=== PATIENT | female | born 1950 | race Caucasian/White ===

== ENCOUNTER 2023-07-21 06:50 | Day surgery (SDC) | payer MEDICARE ==
[2023-07-12 14:30] VITALS: BP 106/63
[~2023-07-21] VITALS: Ht 152.4 cm; Wt 53.2 kg
--- NOTE | ~2023-07-21 | OR ---
[facility] [address] [place], [place] [address] Draft DATE OF OPERATION: 07/21/2023 SURGEON: Natalya Jain MD PREOPERATIVE DIAGNOSIS: Postmenopausal bleeding. POSTOPERATIVE DIAGNOSIS: Postmenopausal bleeding, small polyp. ANESTHESIA: MAC. ESTIMATED BLOOD LOSS: Minimal. DRAINS: None. INDICATIONS AND FINDINGS: The patient is a 72-year-old female who has recently had some abnormal bleeding. She also has a history of prolapse. At the time of surgery, she has almost complete uterovaginal prolapse. The cavity itself sounded to 7 cm. The cavity was pretty much atrophic other than a small wispy polyp. PROCEDURE IN DETAIL: The patient was prepped and draped in the dorsal lithotomy position. A weighted speculum was placed and the anterior lip of the cervix was visualized and grasped with single-tooth tenaculum. The cavity sounded to 7 cm. The endocervical canal was then dilated to a #8 dilator. The MyoSure device was then introduced and the cavity evaluated. The MyoSure Lite was then introduced and the polyps removed. Following this, the MyoSure Lite was removed and sharp curettage was done with a small curette with a small amount of tissue found. The procedure was then complete. The tenaculum was removed and there was no evidence of any ongoing bleeding from the tenaculum site. She was taken to recovery room in good condition. All sponge and needle counts were correct. PATIENT NAME: CHRISTOPHE HERMAN OPERATIVE REPORT DATE OF : 46 REPORT #: [id number] PHYSICIAN: NATALYA JAIN MD PCP: JENA SIMMONS REPORT IS CONFIDENTIAL AND NOT TO BE RELEASED WITHOUT AUTHORIZATION [facility] [address] [place] [id number] Draft MD RAMIRO Wright/LATRICE /[id number] Copies: ~ PATIENT NAME: CHRISTOPHE HERMAN OPERATIVE REPORT DATE OF : 46 REPORT #: [id number] PHYSICIAN: NATALYA JAIN MD PCP: JENA SIMMONS REPORT IS CONFIDENTIAL AND NOT TO BE RELEASED WITHOUT AUTHORIZATION
[~2023-07-21 06:50] MED LIST: B COMPLEX WITH1 EAC1 PO; CARBIDOPA-LEVO1 EA10 PO; CELEXA20 MG PO; CLONAZEPAM1 MG PO; MELATONIN10 M2 PO; MOVE FREE ULTR1 EAC2; PRAMIPEXOLE0.125 MG PO; SEROQUEL50 MG PO
--- NOTE | 2023-07-21 07:27 | NUR ---
DS ROUNDS. PT GONE FOR PROCEDURE. PROVIDED PRAYER.
[2023-07-21 07:36] VITALS: BP 132/60
[2023-07-21 12:26] VITALS: BP 118/53
--- NOTE | 2023-07-21 12:30 | NUR ---
07/21/23 1230 Carmen Negron 1050 PT ARRIVED IN PACU SLEEPY. 1110 DR AT BEDSIDE. CONTINUES TO SLEEP. REU. 1120 PT AWAKE AND TALKING TO STAFF. 1125 SITTING UP IN BED SIPPING ON WATER. 1130 GETTING DRESSED WITH STAND BY ASSIST. NO C/O'S. 1141 LEFT VIA W/C TO WAITING ROOM. DC INSTRUCTIONS GIVEN TO PT/SPOUSE. ALL QUESTIONS ANSWERED. SPOUSE WANTING TO TAKE TO CAFETERIA. OFFERED TO HAVE LUNCH BROUGHT UP TO ROOM 12 TO EAT. 1145 IN ROOM 12 SITTING IN W/C WAITING FOR TURKEY LUNCH. CALL LIGHT IN PLACE. SPOUSE IN ROOM.
--- NOTE | 2023-07-26 06:23 | PATH ---
[facility] [address] [place], [place] [address] Signed SPECIMEN(S): A ENDOMETRIAL CURETTINGS SPECIMEN SOURCE: A. ENDOMETRIAL CURETTINGS CLINICAL HISTORY: Postmenopausal bleeding FINAL PATHOLOGIC DIAGNOSIS: Endometrial curettings: - Polypoid fragments of endometrial and lower uterine segment type mucosa with atrophic features, negative for hyperplasia or atypia. - Benign endo and ectocervical epithelium. JVR:von MICROSCOPIC EXAMINATION: Histologic sections of all submitted blocks are examined by light microscopy. These findings, together with the gross examination, support the pathologic diagnosis. GROSS DESCRIPTION: The specimen, labeled and designated "Omar, endometrial curettings," is received in formalin and consists of multiple fragments of red-brown to pink-coronado soft tissue (2.4 x 0.5 x 0.1 cm in aggregate). The specimen is submitted entirely in cassette (A1). VB (under the direct supervision of a pathologist) The Gross Description was prepared using a voice recognition system. The report was reviewed for accuracy; however, sound-alike word errors, addition and/or deletions may occur. If there is any question about this report, please contact Client Services. PERFORMING LABORATORY: Technical component was performed by [facility], [address] [place] [id number] (CLIA# [id number]). Professional interpretation was performed by [facility], [address] [place] [id number] (CLIA#: [id number]). Diagnostician: Joel Monae MD Pathologist Electronically Signed 07/23/2023 PATIENT NAME: CHRISTOPHE HERMAN PATHOLOGY DATE OF : 46 REPORT #: [id number] PHYSICIAN: ALEXANDER PATHOLOGY PCP: JENA SIMMONS REPORT IS CONFIDENTIAL AND NOT TO BE RELEASED WITHOUT AUTHORIZATION [address] [place] [address] Signed Copies: ~ PATIENT NAME: CHRISTOPHE HERMAN PATHOLOGY DATE OF : 46 REPORT #: [id number] PHYSICIAN: ALEXANDER PATHOLOGY PCP: JENA SIMMONS REPORT IS CONFIDENTIAL AND NOT TO BE RELEASED WITHOUT AUTHORIZATION
== END 2023-07-21 11:41 | disposition home or self-care (01) ==
LOC: OPS 06:50 → DS 06:50 → OPS 09:00
PROVIDERS: ATTEND Obstetrics & Gynecology
PROC: 0UDB8ZZ Extraction of Endometrium, Via Natural or Artificial Opening Endoscopic (ICD-10-PCS; principal; 2023-07-21 10:00)
DX: N84.0 Polyp of corpus uteri (principal); N95.0 Postmenopausal bleeding; M85.80 Other specified disorders of bone density and structure, unspecified site; G20.A1 Parkinson's disease without dyskinesia, without mention of fluctuations; Z79.899 Other long term (current) drug therapy
CPT/HCPCS: 00952; 88305; J2001; J2704; J7121

== ENCOUNTER 2023-08-10 09:34 | Inpatient (IN) | payer MEDICARE ==
[~2023-08-10] VITALS: Ht 152.4 cm; Wt 52.0 kg
--- NOTE | ~2023-08-10 | OR ---
[facility] [address] [place], [place] [address] Draft DATE OF OPERATION: 09/01/2023 SURGEON: Natalya Jain MD PHOTO PRINT SPECIALIST: Johnson. PREOPERATIVE DIAGNOSIS: Complete uterovaginal prolapse, stress incontinence. POSTOPERATIVE DIAGNOSIS: Complete uterovaginal prolapse, stress incontinence. PROCEDURES: Total vaginal hysterectomy, bilateral salpingectomy, sling procedure, colpocleisis, cystoscopy. ANESTHESIA: Spinal with general ET. ESTIMATED BLOOD LOSS: 200 mL. DRAINS: Soto catheter. PACKS: None. INDICATIONS AND FINDINGS: The patient is a 72-year-old female, who has been having worsening issues with uterovaginal prolapse. She has previously used a pessary and did not tolerate this well. Options were discussed and she wished to proceed with colpocleisis. At the time of surgery the uterus presented at the introitus. The uterus itself was small. The tubes and ovaries appeared normal. PROCEDURE IN DETAIL: The patient was prepped and draped in the dorsal lithotomy position. A weighted speculum was placed. The anterior lip of the cervix was visualized and grasped with single-tooth tenaculum. The cervix was injected with 10 mL of 1% lidocaine with PATIENT NAME: CHRISTOPHE HERMAN OPERATIVE REPORT DATE OF : 46 REPORT #: [id number] PHYSICIAN: NATALYA JAIN MD PCP: JENA SIMMONS REPORT IS CONFIDENTIAL AND NOT TO BE RELEASED WITHOUT AUTHORIZATION [facility] [address] [place], [place] [address] Draft 1:200,000 epinephrine. Posterior cul-de-sac was then entered sharply. The uterosacral ligaments were grasped bilaterally and divided with suture ligatures of 0 Vicryl. The vaginal mucosa was then circumscribed with a knife. The vaginal mucosa was from the overlying tissue with sharp dissection. The anterior cul-de-sac was thus entered. Following this, the remaining pedicle could be grasped with a single curved Z clamp on each side. This was done and divided. A free tie of 0 Vicryl followed by suture ligature of 0 Vicryl was placed on each side. The patient's right tube was grasped with [place] clamps and clamped across. This removed the great majority of the tube including the fimbriated end. It was excised. A free tie of 0 Vicryl was placed. The same procedure was carried out on the patient's left side. Following this, the vaginal cuff was examined. There was some bleeding from the posterior cuff and two [id number] sutures were placed bring the peritoneum down to the cuff using the 0 Vicryl. There was also a suture bringing the peritoneum to the cuff on the patient's right side. Following this, the cuff itself appeared to be hemostatic. The peritoneum was closed with a running suture of 3-0 Vicryl. The cuff itself was closed with a running locking stitch of 0 Vicryl. Attention was then directed anteriorly and Allis clamps were placed in the midline. A knife was used to incise the midline. This was done from the midurethral area down to the vaginal cuff. The vaginal mucosa was from the underlying tissue with a combination of blunt and sharp dissection. The most distal portion of this where the sling would be placed was carried out further laterally for placement of this. The vaginal mucosa was otherwise to the lateral aspects of the vagina. Following this, the obturator notch was identified. A knife was used to incise this. The trocars were placed for the sling procedure. These were placed at the lowest most medial portion of the obturator notch placed immediately behind the pubic rami and into the most upper lateral aspect of the vaginal incision. Care was taken to not buttonhole. This was done bilaterally. Following this, this Soto catheter was removed and cystoscopy was done. The 70-degree scope was placed and the bladder evaluated. There was no evidence of any injury. Fluorescein was needed as there was no obvious urine from the ureteral orifices, but was seen bilaterally eventually. Following this, the bladder was drained and the Soto catheter replaced. The portion of vaginal mucosa was over the sling was closed with a running suture of 2-0 Vicryl. The remaining vaginal mucosa was excised as far laterally as possible on each side. This area was packed after bleeding points were controlled. Attention was directed posteriorly. A triangle of tissue was removed from the perineal body. The vaginal mucosa was then undermined, incised in the midline sharply. This was carried to the apex of the vagina. The vaginal mucosa was then from the underlying tissue with a combination of blunt and sharp dissection and this was done as far laterally as possible. Following this, a small area of the vagina was left for the fourchette and slightly into the vagina. The remaining vaginal mucosa was then excised sharply as far laterally as possible and up to the vaginal cuff. There was a small amount of vaginal mucosa remaining of the vaginal cuff on each side. Following this, bleeding points were controlled with the cautery. There was some vascular bleeding at PATIENT NAME: CHRISTOPHE HERMAN OPERATIVE REPORT DATE OF : 46 REPORT #: [id number] PHYSICIAN: NATALYA JAIN MD PCP: JENA SIMMONS REPORT IS CONFIDENTIAL AND NOT TO BE RELEASED WITHOUT AUTHORIZATION [facility] [address] [place], [place] [address] Draft the cuff angles and this required several sutures of 2-0 Vicryl. The sutures at the very top of the vagina were placed and this closed and inverted the vaginal mucosa with a running suture of the 2-0 Vicryl. The edges of the vaginal mucosa laterally were then brought together with running sutures of 2-0 Vicryl. FloSeal was placed in each of the upper angles. These were run down to the remaining vaginal tissue at the introitus bilaterally. A piece of Gelfoam was placed between the anterior and posterior noriega to further aid in hemostasis. The posterior vagina was closed with a running suture of 2-0 Vicryl and this also closed the fourchette. Sutures of 0 Vicryl were placed high on the perineal body, plicating the muscles. The skin was closed with subcuticular sutures of 2-0 Vicryl. The sling incisions were closed with interrupted sutures of 3-0 Vicryl Rapide. All sponge and needle counts were correct. She tolerated the procedure well and was taken to the recovery room in good condition. MD RAMIRO Wright/VENICEL /[id number] Copies: ~ PATIENT NAME: CHRISTOPHE HERMAN OPERATIVE REPORT DATE OF : 46 REPORT #: [id number] PHYSICIAN: NATALYA JAIN MD PCP: JENA SIMMONS REPORT IS CONFIDENTIAL AND NOT TO BE RELEASED WITHOUT AUTHORIZATION
[~2023-08-10 09:34] MED LIST changes: -B COMPLEX WITH1 EAC1 PO; +CALCIUM 500 MG1 EAC6 PO; -MOVE FREE ULTR1 EAC2; +VITAMIN B-1100 MG PO
[2023-08-23] MEDS ORDERED: TYLENOL325 MG PO (16:55)
[2023-08-23 16:59] VITALS: BP 119/75
--- NOTE | 2023-08-25 09:30 | NUR ---
ON 08-23-23 PT WAS PRE-ADMITED, HAD PT VOID INTO HAT AND OBTAINED URINE SAMPLE. URINE WAS CLOUDY AND YELLOW IN COLOR. ABOUT 30MLS SENT TO LAB AND POST RESIDUAL 30MLS. COPY PROVIDED TO DR AVELAR.
[2023-09-01] VITALS (7 sets, daily range): BP systolic 94–128; BP diastolic 46–68
--- NOTE | 2023-09-01 11:56 | NUR ---
09/01/23 1156 Carmen Negron 1104 PT ARRIVED IN PACU NON RESPONSIVE TO NOXIOUS STIMULI WITH OPA IN PLACE. 1111 BP LOW. ANESTHESIA AT BEDSIDE GIVING EPHEDRINE. 1113 PT SWALLOWING. OPA REMOVED. 1115 BP 111/63. ANESTHEISA AWARE WITH NO NEW ORDERS. 1130 OXYGEN REMOVED. SATS 93-100% ON RA. PT DROWSY. REU. 1145 PT VERY SLEEPY. OCCASIONALLY MOVES L HAND TO FACE AND BACK DOWN. NO RESPONSE TO VERBAL STIMULI.
--- NOTE | 2023-09-01 12:16 | NUR ---
PT ARRIVES TO UNIT VIA. REPORT RECEIVED FROM CLOSED CIRCUIT SCREEN WATCHER, ALL QUESTIONS ANSWERED. PT DENIES PAIN. MINIMALLY VOCAL AT THIS TIME. AT BEDSIDE. BP 94/49, MAP 60, 97% ON RA, HEART RATE 66 AND RESP RATE 14. MEDICATIONS AND PLAN OF CARE DISCUSSED WITH . PT AND ORIENTED TO ROOM AND CALL LIGHT. CALL LIGHT WITHIN REACH. PT C/O NECK PAIN, STATES HX OF NECK AND BACK PAIN. HEAT PACK PROVIDED. NO FURTHER NEEDS AT THIS TIME.
--- NOTE | 2023-09-01 14:24 | NUR ---
PT SITTING UP IN BED WITH EYES CLOSED, AWAKENS EASILY. ANSWERS SIMPLE QUESTIONS. DENIES PAIN OR NAUSEA AT THIS TIME. ALERT TO SELF. REMAINS AT BEDSIDE. NO BLEEDING NOTED TO SHARRON PAD OR CHUX PAD. CALL LIGHT IN REACH. DENIES NEEDS AT THIS TIME.
--- NOTE | 2023-09-01 14:56 | NUR ---
PT SITTING UP AWAKE IN BED. SCHEDULED MEDICATIONS GIVEN. PROVIDED SANDWICH BOX. PT REMAINS AT BEDSIDE. MADDEN DRAINING CLEAR YELLOE URINE. PT DENIES PAIN OR FURTHER NEEDS AT THIS TIME. CALL LIGHT IN REACH.
--- NOTE | 2023-09-01 16:32 | NUR ---
PT MOVED TO ROOM 111 WITH BED. LEAVING FOR THE EVENING. PT AWAKE IN BED, ALERT TO SELF AND PLACE. DENIES PAIN OR NEEDS. NO BLEEDING NOTED TO SHARRON PAD. MADDEN DRAINING CLEAR YELLOW URINE. CALL LIGHT WITH IN REACH. BED ALARM ON.
--- NOTE | 2023-09-01 17:34 | NUR ---
PT BED ALARM GOING OFF. IN ROOM PT WITH NO GOWN ON ATTEMPTING TO REMOVE SCDS. SCDS. REMOVED, PT APPEARS CONFUSED, STATING SHE "NEEDS TO GO HOME" AND "IT SOUNDS LIKE AN ANGRY OUT THERE" ATTEMPTING TO PULL IV AND MADDEN. ORIENTED PT TO ROOM AND SITUATION, PT RECALLS BEING IN THE HOSPITAL. REPLACED GOWN, PROVIDED EDUCATION ON IV AND MADDEN, PT STOPPED PULLING THEM. PT WITH MODERATE AMOUNT SANGUINEOUS DRAINAGE ON CHUX PAD, PERICARE, MADDEN CARE AND BRIEF PROVIDED. PT ASSISTED BACK TO BED. DINNER TO BEDSIDE. PT DENIES FURTHER NEEDS AT THIS TIME. CALL LIGHT IN REACH AND BED ALARM on.
--- NOTE | 2023-09-01 19:39 | NUR ---
REPORT RECEIVED FROM JUAN PABLO BUTTS. pt IN BED AWAKE, CALLING OUT. ATTEMPT TO GET LEGS OUT OF BED. FLOAT JUAN PABLO LAW IN ROOM. BED ALARM ON. IVF INFUSING WNL.
--- NOTE | 2023-09-01 20:22 | NUR ---
pt IRRITABLE, SWATS AT RN, REDIRECTABLE. pt NOT ANSWERING ORIENTATION QUESTIONS, DOES STATE NAME AND BIRTHDAY. REORIENTATION PROVIDED. pt PULLS OFF STAT LOCK, NEW STAT LOCK PLACED, MADDEN DRAINING, ANNIA WRAP LOOSLY WRAPPED AROUND MADDEN LINE. PM MEDICATIONS ADMINISTERED. pt SWALLOWS PILLS WITH DRINKS OFF ORANGE JUICE. SWINGS ARM AT THIS RN AND RIVET MAKER RN DURING CARES, REFUSES RN TO DO MADDEN CARE DESPITE EDUCATION. VSS. pt ALLOWED TO REST AT THIS TIME. BED ALARM ON. FALL MATS IN PLACE.
--- NOTE | 2023-09-01 21:14 | NUR ---
CHECKED ON pt. YELLING OUT "MOM". LYING IN BED WITH HEAD TO RIGHT SIDE ON PILLOW. CRYSTAL REPORT DEVELOPER CRISTHIAN IN ROOM. MADDEN EMPTIED, 100 MLS YELLOW URINE. BED ALARM ON.
--- NOTE | 2023-09-01 21:30 | NUR ---
pt YELLING OUT "MOM". DIRECTOR TITLE SINASYA IN ROOM. pt AGITATED. SWINGING ARMS. PUNCHES THIS RN IN STOMACH WITH ATTEMPT TO CALM pt. pt WITH LEGS TO SIDE OF BED. REPOSITIONED 2PA. pt EDUCATED ON APPROPRIATE BEHAVIOR TO STAFF, PLAN OF CARE. pt STATES "I WON'T DO THAT AGAIN". BED ALARM ON. STAFF OUT OF ROOM AT THIS TIME.
--- NOTE | 2023-09-01 22:13 | NUR ---
pt NOTED WITH PANTS DOWN AROUND ANKLES, PULLING AT CATHETER TUBING, REMOVES STAT LOCK. JUAN PABLO RIVAS AND TALITA MORROW IN ROOM. NEW STAT LOCK PROVIDED. PRN BENADRYL ADMINISTERED. NEW ATTENDS ON. MADDEN CARE COMPLETE, EDUCATION PROVIDED. pt DROWSY. BED ALARM ON. BED IN LOW POSITION.
--- NOTE | 2023-09-01 22:49 | NUR ---
CHECKED ON pt. PULLING AT CATHETER. EDUCATION PROVIDED. pt STATES UNDERSTANDING TO NOT PULLING ON CATHETER TUBING. BLANKET PROVIDED. BED ALARM ON.
[2023-09-02] VITALS (7 sets, daily range): BP systolic 98–128; BP diastolic 38–57
--- NOTE | 2023-09-02 01:24 | NUR ---
CHECKED ON pt. RESTING IN BED ON BACK. BREATHING EQUAL AND UNLABORED. pt NOT SHIFTING IN BED. IVF INFUSING WNL. MADDEN PATENT AND DRAINING. BED ALARM ON.
--- NOTE | 2023-09-02 02:25 | NUR ---
THIS RN PASSESS BY ROOM, pt WITH LEGS CURLED UP, MOVING TO EDGE OF BED. NOTED TO HAVE DISCONNECTED IV SITE AT CATHETER HUB, LEAKING BLOOD ALL OVER FLOOR, LINENS. pt CLEANED, NEW GOWN, LINENS, AND ATTENDS IN PLACE. MINIMAL DRAINAGE FROM SHARRON AREA. MADDEN CARE COMPLETE. pt DENIES PAIN. NEW IV SITE PLACED BY FLOAT JUAN PABLO LAW. IVF INFUSING WNL. IV WRAPPED WITH MESH AND COBAN. pt REPOSITIONED IN BED 2PA, CALL LIGHT IN REACH. BED ALARM ON.
--- NOTE | 2023-09-02 03:04 | NUR ---
20G PLACED IN RFA, 1 ATTEMPT BY THIS RN. 2 PREVIOUS ATTEMPTS BY OTHER RN WITHOUT SUCCESS. PT TOLERATED WELL. SUPERVISOR BAKING IN ROOM AT THIS TIME. CALL JESSICA SPARKS.
--- NOTE | 2023-09-02 04:30 | NUR ---
pt CRYING YELLING OUT "I WANT MY MOMMY OR MY DADDY, I WOULD TAKE ANYONE." OCCASIONAL "OUCH". DOES NOT STATE PAIN LOCATION OR INTENSITY. EVELYN RN IN ROOM TO ATTEMPT TO ADMINISTER MEDICATIONS FOR PAIN. DRINKS OF ORANGE JUICE PROVIDED. ATTEMPT TO REPOSITION pt, pt SWATTING ARMS, STATING "DON'T DO THAT". AGAIN CRYING. BED ALARM ON. HAND BUFFER IN ROOM.
--- NOTE | 2023-09-02 04:44 | NUR ---
pt DOES NOT TAKE TYLENOL OR MOTRIN FROM RN EVELYN OR THIS RN. BACK IN ROOM TO ATTEMPT TO ADMINISTER. pt AGREES, STATES SHE DOES TAKE TYLENOL. RN ATTEMPTS TO POUR MEDICATIONS IN MOUTH, pt BITES CUP, GRABS PILL FROM LIP AND THROWS AT RN. KICKS AT RN, KICKS SIDE RAIL WITH LEFT FOOT. pt SWINGS AT RN WITH ARMS ATTEMPT TO PICK SECOND PILL OFF BED. MEDICATIONS WASTED AT THIS TIME. IVF INFUSING WNL. pt HAS GOWN OFF, REFUSES TO LET STAFF DRESS HER. RN OUT OF ROOM AT THIS TIME. BED ALARM ON.
--- NOTE | 2023-09-02 06:01 | NUR ---
pt WITH GOWN AND BLANKETS OFF. ATTEMPT TO REDRESS PATIENT, pt REFUSES. ATTEMPT FOR VS, pt BITES AT NURSES, SLAPS WITH HANDS. CONTINUES TO PULL AT MADDEN CATHETER. pt REMOVES MESH WRAP AND COBAN COVERING IV SITE. JUAN PABLO RIVAS REMAINS IN ROOM. PHONE CALL TO MD, NEW ORDERS RECEIVED AND REPEATED BACK TO VERIFY. PHONE CALL TO TELEPHARMACY TO VERIFY SAFETY OF MEDICATION ADMINISTRATION WITH CURRENT MEDICATIONS.
--- NOTE | 2023-09-02 06:17 | NUR ---
GARNETTER RN AND DATA STEWARD IN ROOM. pt COMBATIVE, ATTEMPTS TO BITE RNS. HALDOL ADMINISTERED IV. IV WRAPPED IN ANNIA WRAP FOR LINE PROTECTION. MADDEN EMPTIED. BED ALARM ON.
--- NOTE | 2023-09-02 06:55 | NUR ---
pt DROWSY, OPENS EYES TO VOICE. LAB TECHS IN ROOM FOR LAB DRAW. pt COOPERATIVE. VS COMPLETE. pt RESTING IN BED WITH EYES CLOSED, BREATHING UNLABORED. BED ALARM ON. IV SITE REDRESSED WITH MESH WRAP AND COBAN FOR LINE PROTECTION. MADDEN DRAINING CLEAR YELLOW URINE.
[2023-09-02 07:04] LABS: HEMATOCRIT 25.3 % (35.0-50.0); HEMOGLOBIN 8.4 g/dL (12.0-18.0); MCH 32.3 (27-36); MCHC 33.4 g/dl (30-36); MCV 96.5 fl (81-99); RBC 2.62 M/ul (4.3-5.7); RDW 12.3 (10.5-15.0)
[2023-09-02 07:18] LABS: ANION GAP 10.9 (7-21); BUN/CREATININE RATIO 26.88 (6.0-28.6); CALCIUM 8.7 mg/dL (8.5-10.1); CREATININE, SERUM 0.93 mg/dL (0.55-1.02); POTASSIUM 3.9 mmol/L (3.5-5.1)
--- NOTE | 2023-09-02 09:12 | NUR ---
RECIEVED REPORT FROM NURSE AT 0715. PT WAS RESTING WITH EYES CLOSED AND EVEN UNLABORED BREATHING NOTED. CURRENTLY PT IS RESTING BUT AWAKE WITH EYES CLOSED AND IS IN. ASSISTED WITH ORAL MEDS. PT IS CONFUSED TO PLACE TIME AND EVENT. NO OTHER CARES NEEDED OR REQUESTED AT THIS TIME CALL LIGHT WITHIN REACH
--- NOTE | 2023-09-02 10:54 | NUR ---
PATIENT CARE BEING COMPLETED. WILL RETURN TO COMPLETE ASSESSMENT.
--- NOTE | 2023-09-02 11:27 | NUR ---
PATIENT RESTING IN BED. SPOKE WITH DAVID, SPOUSE. PATIENT LIVES WITH SPOUSE IN SINGLE LEVEL HOME WITH STEPS TO GET IN ONLY. PATIENT NORMALLY HAS NO ISSUES NAVIGATING STEPS. DEMOGRAPHICS VERIFIED WITH DAVID. PATIENT HAS 3 WALKERS IN HOME, AVAILABLE IF NEEDED. STATES NO OTHER DME. DAVID DRIVES AND TRANSPORTS PATIENT TO ALL APPOINTMENTS ETC. STATES NO FINANCIAL HARDSHIPS PAYING FOR FOOD, UTILIES MEDS. DENIES NEEDS AT THIS TIME. INSTRUCTED TO NOTIFY STAFF IF NEEDS ARISE. VERBALIZES UNDERSTANDING.
--- NOTE | 2023-09-02 12:04 | NUR ---
ROUNDS. PT RECEIVING NURSING CARE. DID NOT INTERRUPT. PROVIDED SILENT PRAYER.
--- NOTE | 2023-09-02 13:00 | NUR ---
PT AWAKE TO EAT, ALERT TO SELF, PLACE AND EVENT. PT EATING LUNCH REQUIRING MINIMAL ASSIST TO EAT.
--- NOTE | 2023-09-02 13:40 | NUR ---
Review: 09/02/2023: [facility] Review - pt meets inpatient stay guidelines for Guideline: Repair of Pelvic Organ Prolapse. Pt currently at Day 1 with a variance. .
--- NOTE | 2023-09-02 13:41 | NUR ---
ROUNDS. IN ROOM. DID NOT INTERRUPT. PROVIDED SILENT PRAYER.
--- NOTE | 2023-09-02 13:45 | NUR ---
DR AVELAR IN ROOM. DISCUSSED REMOVING MADDEN AND DOING EVERY 2 HOUR BLADDER SCAN FOR RESIDUALS. ORDER TO DC MADDEN. PT WANTING TO ATTMEPT STANDING. PT ABLE TO SIT ON EDGE OF BED UNASSISTED. ABLE TO STAND WITH FWW AND 2 PERSON ASSIST. TOLERATED WELL. UNABLE TO TAKE STEPS AT THIS TIME. PT STAND X2. DISCUSSED ATTMEPTING TO GET UP TO CHAIR FOR DINNER, PT VERBALIZED UNDERSTANDING. PT ALERT TO SELF, PLACE AND EVENT. CALM AND COOPERATIVE, FOLLOWING COMMANDS. RE-ORIENTED TO CALL LIGHT, WITHIN REACH. BED ALARM ON AND FALL MATS IN PLACE.
--- NOTE | 2023-09-02 14:00 | NUR ---
PT BACK TO BED AFTER STANDING ATTEMPTS. MADDEN CATHETER REMOVED. PERICARE AND CLEAN BRIEF PROVIDED. CALL LIGHT IN REACH. BED ALARM ON AND FALL MATS IN PLACE.
--- NOTE | 2023-09-02 15:11 | NUR ---
pt meds given and tolerated. pt in room and wlked pt to use the rest room. no other cares needed or requested at this time call light within reach
--- NOTE | 2023-09-02 19:11 | NUR ---
SHIFT REPORT RECEIVED FROM DAYSHIFT JUAN PABLO GARCIA AT BEDSIDE. pt AWAKE AND EATING DINNER WITH HELP FROM TALITA GALVAN. BED ALARM ON AND CALL LIGHT IN REACH. pt ON RA, RR EVEN AND UNLABORED-NO DISTRESS NOTED. pt CALM AND NONAGGRESSIVE AT THIS TIME. WILL CONTINUE TO MONITOR.
--- NOTE | 2023-09-02 20:10 | NUR ---
pt HEARD YELLING OUT FOR HELP, THIS RN IN ROOM TO ASSIST. pt WISHES TO HAVE DINNER TRAY REMOVED, pt ATE 100% DINNER. HOB ALSO LOWERED FOR COMFORT, CALL LIGHT IN REACH AND BED ALARM REMAINS ON FOR SAFETY.
--- NOTE | 2023-09-02 21:31 | NUR ---
assessment complete, pt up 2pa with fww to bsc. pt unsteady and at times has troubles following commands. hx parkinsons. bed alarm on and call light in reach following void of 200mls, post void residual of 279 mls. scheduled meds given-see emar, no issues swallowing noted. scant blood noted with vianey care, clean attends in place.
--- NOTE | 2023-09-02 22:09 | NUR ---
pt heard calling out for help, in room to assess. pt states, "my feet are cold and i think i should go home". warm blankets provided and room temp increased. bed alarm on and call light in reach.
--- NOTE | 2023-09-02 22:30 | NUR ---
with help from fire extinguisher chargerdarrick wood, pt up 2pa with fww to bsc and voided 150mls. post void residual >350mls, pt back in bed with warm blanket and bed alarm on. call light in reach. will continue to monitor.
--- NOTE | 2023-09-03 00:49 | NUR ---
pt RESTING QUIETLY IN BED WITH EYES CLOSED, ON RA. RR EVEN AND UNLABORED. NO DISTRESS NOTED. CALL LIGHT IN REACH AND BED ALARM ON FOR SAFETY.
--- NOTE | 2023-09-03 01:00 | NUR ---
BED ALARM GOING OFF, pt UP TO BSC 2PA WITH FWW, pt VOIDED 100MLS AND BACK IN BED. POST VOID RESIDUAL RESULT OF >308MLS. BED ALARM RESUMED AND CALL LIGHT IN REACH. WILL CONTINUE TO MONITOR.
--- NOTE | 2023-09-03 01:39 | NUR ---
pt HEARD CALLING OUT FOR HER MOTHER, IN ROOM TO ASSESS. pt STATES, "WHERE IS MOTHER". pt REORIENTED AND ENCOURAGED TO REST. BED ALARM REMAINS ON AND CALL LIGHT IN REACH.
--- NOTE | 2023-09-03 03:35 | NUR ---
rounded on pt, pt resting in bed wiht eyes closed. on ra, rr even and unlabored. bed alarm on and call light in reach.
[2023-09-03 04:32] VITALS: BP 116/59
--- NOTE | 2023-09-03 05:53 | NUR ---
in room and attempted to get pt oob to attempt to void, pt refuses to get oob and states, "i don't have to and i'm not going to". charge loader israel and this rn in room and made multiple attempts to educate pt and encourage her to get oob, pt continues to refuse and made a fist towards charge loader. attempted to bladder scan pt and pt refuses bladder scan at this time and verbalizes "the man told me not to and you've been poisening me". unable to redirect a this time, bed alarm remains on and call light in reach. will attempt again in 30 minutes or so per charge loader.
--- NOTE | 2023-09-03 06:48 | NUR ---
ATTEMPTED AGAIN TO ENCOURAGE pt TO GET OOB TO VOID, pt CONTINUES TO REFUSE AND STATES, "DR AVELAR CAN...IF YOU TOUCH ME I'LL GUILLERMINA". ATTEMPTED TO EDUCATE AND REORIENT pt ON RATIONALE/IMPORTANCE OF VOIDING, pt AGAIN REFUSES. ATTEMPTED TO BLADDER SCAN pt, pt PULLS AT GOWN AND REFUSES TO BE BLADDER SCANNED. DR AVELAR UPDATED ON pt's MOST RECENT POST VOID RESIDUAL OF >455MLS AT APPROX 0445 AND INABILITY TO BLADDER SCAN pt AT THIS TIME. TELEPHONE ORDER READ BACK TO STRAIGHT CATH X1 NOW.
--- NOTE | 2023-09-03 07:25 | NUR ---
recieved report from nurse at 0713. pt is currently in bed resting with eyes closed and even unlabored breathing noted. call light within reach
--- NOTE | 2023-09-03 07:30 | NUR ---
report given to leana buckner, pt getting up to bsc and attempting to void. daysjazmin aware of order and to straight cath pt.
[2023-09-03 10:36] VITALS: BP 110/55
[2023-09-03 14:37] VITALS: BP 109/49
--- NOTE | 2023-09-03 14:41 | NUR ---
spoke with dr griffith. states that would like to make sure that ca void on her own again before discharge. We will monitor wifes ability to void over night and do bladder scans to mke sure that she isn't holding over 450 mls. pt is currently in bed resting with eyes closed but is alert to voice when asked questions. no other cares needed or requested at this time. call light within reach
--- NOTE | 2023-09-03 15:17 | NUR ---
dr tadeo requested that by six oclock if patient hasn't voided to bladderscan and if not over 450 continue tobladderscan every 4 hours.
[2023-09-03 16:37] VITALS: BP 134/68
--- NOTE | 2023-09-03 18:57 | NUR ---
called dr griffith and let him know that pt had a bladderscan of 513ml then pt voided 100ml with a post residual of 458 according to the bladderscan. dr griffith said to continue doing bladderscans q2 hrs until 2200. if pt doesn't void enough to be under [address] nav[address] but call and let him know.
--- NOTE | 2023-09-03 19:20 | NUR ---
SHIFT REPORT RECEIVED FROM JOSE ALMEIDA, PT ASLEEP, RESP EVEN AND REG, HOB ELEVATED APPROX 20 DEGREES.
--- NOTE | 2023-09-03 20:23 | NUR ---
PT RESTING IN BED, AWAKENS TO NAME AND TOUCH, ALERT, VS DONE, BLADDER SCAN DONE, RESIDUAL >534ML, PT AGREES TO ATTEMPT TO GET UP TO BSC, 2PA WITH WALKER, PT SMALL STEPS WITH ENCOURAGEMENT, SITTING ON TOILET, SCANT LIGHT RED VAGINAL DRAINAGE NOTED IN ATTENDS, RN REMAINS AT SIDE, RT MEDS GIVEN PER ORDER, PT ABLE TO SWALLOW WITH SIPS OF WATER A FEW AT A TIME, ASSESSMENT COMPLETED, PT DENIES PAIN AT THIS TIME, AFTER A FEW MINUTES, PT 2PA BACK TO BED, PT HAD MOD FORMED BROWN BM, PERICARE GIVEN, BACK TO BED, PT VOIDED 100ML YELLOW URINE, POST VOID RESIDUAL 273ML. ASSESSMENT COMPLETED. SL IN RIGHT FA FLUSHES WELL. PT RESTING, SIDE RAILS UP X 4, PT RESTING WITHOUT COMPLAINTS.
[2023-09-03 20:24] VITALS: BP 124/57
[2023-09-03 20:25] VITALS: BP 124/57
--- NOTE | 2023-09-03 23:10 | NUR ---
PT ASLEEP, AWAKENS TO NAME AND TOUCH, DENIES NEED TO VOID, BLADDER SCANNED FOR 292ML OF RESIDUAL, PT VERY DROWSY, UNABLE TO AWAKEN TO TAKE MOTRIN, MEDICATION HELD DUE TO SLEEPINESS.
--- NOTE | 2023-09-03 23:21 | NUR ---
TC TO DR GRACE, UPDATED ON BLADDER SCAN COMPLETED AT 2310, PT SLEEPY AND DENIES NEEDS TO VOID, BLADDER SCANNED FOR RESIDUAL OF 292ML, MD STATES TO CONTINUE TO SCAN BLADDER Q 2 HOURS, HAVE PT VOID, THEN DO POST RESIDUAL VOID, IF GREATER THAN 450ML INSERT MADDEN CATH, NO NEED TO CALL MD FOR THIS.
--- NOTE | 2023-09-03 23:30 | NUR ---
PT APPEARS TO SLEEP, RESP EVEN AND REG, WITHOUT DISTRESS.
--- NOTE | 2023-09-04 01:10 | NUR ---
BLADDER SCAN DONE ON PT, 499ML RESIDUAL NOTED, ASSISTED PT UP TO BSC 2PA, PT SATS FOR ABOUT 15MINUTES BUT STATES SHE DOESN'T FEEL LIKE SHE HAS TO VOID, PT BACK TO BED, PREPARING FOR MADDEN PLACEMENT.
--- NOTE | 2023-09-04 02:00 | NUR ---
MADDEN PLACEMENT DELAYED DUE TO SITUATION ON UNIT, WHEN RN BACK TO ROOM, PT NOTED SITTING UP, STATES SHE NEEDED TO GO PEE BECAUSE SHE WAS TOLD TO, PT ASSISTED UP TO BSC WITH 2PA, VOIDED 250 ML YELLOW URINE AFTER APPROX 10MINUTES, BACK TO BED, BLADDER SCANNED FOR 285 ML RESIDUAL, PLAN TO RESCAN BLADDER IN APPROX 2 HOURS. PT RESTING QUIETLY WITHOUT DISTRESS.
--- NOTE | 2023-09-04 04:50 | NUR ---
PT APPEARS TO SLEEP, RESP EVEN AND REG. LAYING ON RIGHT SIDE.
[2023-09-04 05:35] VITALS: BP 131/65
--- NOTE | 2023-09-04 05:35 | NUR ---
PT LAYING ON SIDE, RN TO ROOM, PT BECOMING AGITATED, WANTING TO TALK TO , DISCUSSED TIME OF DAY AND ASKED IF WE COULD WAIT A BIT, PT BECOMING VERY AGITATED, GRIPPING NURSES HAND, VS DONE AND STABLE, ATTEMPTED TO SCAN PT'S BLADDER, UNABLE TO, MEDICATED WITH HALDOL 0.5MG IV PER ORDER, IV SITE FLUSHES WELL.
--- NOTE | 2023-09-04 06:05 | NUR ---
PT CALMER, RESISTANT TO HAVING BLADDER SCANNED, WARM BLANKETS GIVEN, PT SCANNED, RESIDUAL 312ML, PT REFUSED TO GET UP TO VOID, PT REFUSED TAKING "ANY PILLS", UNABLE TO GET PT TO TAKE BOTH HER TYLENOL AND MOTRIN, PT BECOMING MORE DROWSY, BED ALARM ON AND SIDE RAILS UP X 4.
--- NOTE | 2023-09-04 07:15 | NUR ---
PT WANTING TO GET UP TO BSC, PT VOIDED APPROX 150ML AND HAD MEDIUM FORMED BROWN STOOL, PERICARE GIVEN, BACK TO BED, BLADDER SCANNED, RESIDUAL 485ML, PT MORE CALM, 16 F MADDEN PLACED WITH USE OF LIDOCAINE GEL, MADDEN PASSED WITHOUT DIFFICULTY, DRAINING LIGHT YELLOW URINE, PT CALM AND RESTING WITH EYES CLOSED.
--- NOTE | 2023-09-04 08:30 | NUR ---
RECIEVED PT REPORT AT 0720 FROM NURSE. NURSE REPORTED THAT SHE PLACED IN A MADDEN CATHETER DUE TO PT NOT BEING VOID WITHOUT HAVING A BLADDER UNDER 450 ML. PT IS CURRENTLY RESTING WITH EYES CLOSED AND EVEN UNLABORED RESPIRATIONS NOTED. NO OTHER CAES NEEDED AT THIS TIME CALL LIGHT WITHIN REACH
[2023-09-04 09:37] VITALS: BP 112/53
--- NOTE | 2023-09-04 10:29 | NUR ---
pt is concerened and states that "wifes inabilty to void whats in her bladder is due to the sling DR AVELAR PUT IN". PT WAS TOLD THAT THE DR WOULD BE NOTIFIED OF HIS CONCERN. PT IS CURRENTLY IN BED LAYING DOWN RESTING. PT STATES THAT SHE HAS SOME SHAKES IN HER MOVEMENT. WILL CONTINUE TO MONITOR. NO OTHER CARES OR REQUESTS NEEDED AT THIS TIME. CALL LIGHT WITHIN REACH
--- NOTE | 2023-09-04 12:31 | NUR ---
SPOKE WITH DR GRACE AND HE SAID THE WE WILL TAKE OUT THE MADDEN AT 0400 ON 09/05/23 AND THEN CONTINUE DOING BLADDERSCANS AND POST RESIDUALS
--- NOTE | 2023-09-04 13:02 | NUR ---
pt is currently up in brd eating lunch with at bedside assisting her. pt recieved scheduled med and showing no signs of anxiety or irritation. no other cares needed or requested at this time call light withi reach
[2023-09-04 13:36] VITALS: BP 103/55
--- NOTE | 2023-09-04 15:45 | NUR ---
PT JUST LEFT AND REQUESTED THAT SHE GETS CRANBERRY JUICE ADDED TO HER DINNER TONIGHT. PT IS CURRENTLTY GETTING PERICARE DOWN. NO OTHER REQUESTS OR CARES NEEDED AT THIS TIME. CALL LIGHT WITHIN REACH.
[2023-09-04 17:50] VITALS: BP 111/54
--- NOTE | 2023-09-04 19:00 | NUR ---
SHIFT REPORT RECEIVED FROM JOSE ALMEIDA, PT SITTING IN BED TALKING WITH AN RN, APPEARS CALM AND PLEASANT.
[2023-09-04 20:51] VITALS: BP 116/62
--- NOTE | 2023-09-04 20:55 | NUR ---
pt SOMEWHAT RESTLESS IN BED AND WORRIED HER ISN'T HERE TO VISIT HER, pT REORIENTED AND REDIRECTED WITH CONVERSATION. VS AND I&O'S COLLECTED AND CHARTED. pt LEFT RESTING IN BED, BED ALRM ON AND CALL LIGHT INR EACH. PRIMARY RN IN ROOM FOR EVENING MED PASS-SEE EMAR.
--- NOTE | 2023-09-04 22:30 | NUR ---
PT AWAKE, CALM, ASSESSMENT COMPLETED, RT HS MEDS GIVEN PER ORDER, PT REFUSES KLONDOMEL, PERICARE GIVEN, SMEAR OF BROWN STOOL, AND LIGTH RED VAGINAL DRAINAGE SCANT, CATH CARE DONE, MADDEN DRAINING YELLOW URINE, NEW CHUX AND DRAW SHEET PLACED AND PT REPOSITIONED UP IN BED, WARM BLANKETS GIVEN, SIDE RAILS UP X 4 AND BED ALARM ON.
--- NOTE | 2023-09-04 23:00 | NUR ---
RIGHT FOREARM SF FLUSHED WELL, SITE INTACT.
--- NOTE | 2023-09-04 23:17 | NUR ---
PT AWAKE, CRYING STATING SHE WAS UNSURE WHERE SHE WAS AND WHO WAS PLAYING GAMES IN HIS ROOM, ATTEMPTED TO REORIENT, LOW LIGHT IN ROOM TURNED ON, SUPPORT GIVEN, PT CALMING.
[2023-09-04 23:27] VITALS: BP 116/62
--- NOTE | 2023-09-04 23:30 | NUR ---
PT CRYING, STATING SHE WANTS TO GO HOME, ATTEMPTS TO REORIENT TO TIME AND REASSURE PT UNSUCESSFUL, PT CALLING OUT FOR HER MOM, PT MEDICATED WITH HALDOL PER ORDER FOR RESTLESSNESS, SL PATENT AND FLUSHES WELL, PT REPOSTIONED TO RIGHT SIDE.
--- NOTE | 2023-09-05 00:34 | NUR ---
PT RESTLESS, YELLING OUT, RN TO ROOM, SUPPORT GIVEN, PT MEDICATED WITH HALDOL 0.5MG IV, ATTEMPTING TO REORIENT UNSUCESSFUL.
--- NOTE | 2023-09-05 01:35 | NUR ---
PT CALLING OUT, WANTING TO GET UP OUT OF BED, DENIES NEEDING TO HAVE A BM, REPOSITIONED, EYES CLOSING, BED ALARM REMAINS ON.
--- NOTE | 2023-09-05 02:15 | NUR ---
PT REMAINS RESTLESS, WANTING TO GET UP, PT ASSISTED UP TO BSC TO SEE IF SHE MAY NEED TO HAVE BM, PT UNABLE TO HAVE BM AT THIS TIME, MADDEN DRAINING LIGHT YELLOW URINE.
--- NOTE | 2023-09-05 02:48 | NUR ---
PT REMAINS RESTLESS, DIFFICULT TO REDIRECT, PT WANTING TO TALK WITH MOTHER OR FATHER, SUPPORT GIVEN, PT PULLING AT MADDEN, DISCUSSED IMPORTANCE OF LEAVING THIS ALONE, PT MEDICATED WITH BENADRYL 12.5MG IV, WARM PACK TO NECK, BLANKETS REPLACED. BED ALARM ON, SIDE RAILS UP X 4.
--- NOTE | 2023-09-05 03:45 | NUR ---
pt REMAINS RESTLESS IN BED, WANTING TO GET OOB AND "WALK AROUND", pt STATES, "I HAVE TO GO HOME". ATTEMPTING TO REDIRECT pt AND AT THIS TIME, pt's CALLS AND STATES, "I MISSED A PHONE CALL FROM YOU GUYS LAST NIGHT AT 6 0'CLOCK, WHAT'S GOING ON". UPDATED ON pt's BEHAVIOR THIS SHIFT AND THAT SCHEDULED MEDS WERE GIVEN ALONG WITH PRN MEDS-SEE EMAR. TRANSFERRED TO pt ROOM AND SPOKE TO pt ON THE PHONE. HEAT PACK WRAPPED WITH PILLOW CASE TO NECK FOR REPORTED ACHE, HOB ELEVATED FOR COMFORT. pt NOW CALM AT THIS TIME, BED ALARM ON, CALL LIGHT IN REACH.
--- NOTE | 2023-09-05 04:08 | NUR ---
pt AGAIN RESTLESS AND ATTEMPTING TO GET OOB AND PULL AT GOWN, PRIMARY RN IN ROOM WITH pt TO DC MADDEN AND COMPLETE AM CARES, CALL LIGHT IN REACH AND BED ALARM ON FOR SAFETY.
[2023-09-05 04:15] VITALS: BP 150/64
--- NOTE | 2023-09-05 04:15 | NUR ---
RN TO ROOM, PT ASKING FOR RN TO CHECK ON HER GRANDFATHER, ATTEMPTS MADE TO REDIRECT, MADDEN REMOVED PER MD REQUESTS, VS DONE AND STABLE, PERICARE DONE AND ATTENDS PLACED ON PT, PT REMAINS AWAKE BUT QUIET AT THIS TIME.
--- NOTE | 2023-09-05 05:23 | NUR ---
PT SITTING UP IN BED, BLANKETS PLACED ON PT, TALKING ABOUT HER GRANDPARENTS, PT CLOSED EYES AND RESTING.
--- NOTE | 2023-09-05 06:21 | NUR ---
PT ASLEEP, PT NOT AWAKEN FOR RT TYLENOL OR MOTRIN DUE TO VERY RESTLESS NIGHT, PLAN TO NOT DISTURB PT AT THIS TIME.
--- NOTE | 2023-09-05 07:10 | NUR ---
PT AWAKEN TO COMPLETE BLADDER SCAN, PT BECAME VERY ANGRY AND GRABBED RN HANDS, ATTEMPTS TO EXPLAIN NEED FOR SCAN DONE, PT STILL RESISTIVE, KYLEE RN INTO ROOM TO ASSIST, BLADDER SCAN DONE, RESIDUAL 148ML. PT CALMS AFTER PROCEDURE COMPLETED.
--- NOTE | 2023-09-05 07:26 | NUR ---
REPORT FROM WATER SYSTEMS ENGINEER. 2 PERSON IN TO BLADDER SCAN PATIENT. PATIENT IS COMBATIVE, TRYING TO SCRATCH AND BITE DURING BLADDER SCAN. BLADDER VOLUME IS 148ML AT 0715. BED ALARM IS ON.
--- NOTE | 2023-09-05 07:50 | NUR ---
PATIENT IS SITTING UP IN BED, REFUSES ALL INTERVENTIONS, REFUSES TO TAKE HER 0800 MEDICATIONS. PATIENT IS GLOBALLY CONFUSED AND IS NOT ABLE TO BE REORIENTED. PATIENT IS NOT AGITATED AT THIS TIME. PATIENT ASKED IF SHE NEEDED TO "PEE" SHE SAID, "NOT RIGHT NOW." PLAN TO BLADDER SCAN AT 0915.
--- NOTE | 2023-09-05 08:29 | NUR ---
IN ROOM WITH PATIENT, HAS PATIENT UP TO BATHROOM. WILL TRY TO GIVE PATIENT HER MORNING MEDICATIONS.
--- NOTE | 2023-09-05 09:32 | NUR ---
PATIENT HAS HAD A 100ML VOID WITH 66ML RESIDUAL THIS MORNING. IN ROOM WITH PATIENT.
[2023-09-05 10:06] VITALS: BP 88/45
--- NOTE | 2023-09-05 10:07 | NUR ---
PATIENT RESTING IN BED. IN ROOM WITH PATIENT, VITALS DONE. PLAN FOR PATIENT TO VOID BY 1045 NEXT.
--- NOTE | 2023-09-05 11:03 | NUR ---
PATIENT IS SLEEPING, IS AT BEDSIDE. DISCUSSED WITH THAT SHE SHOULD GET UP SOON AND VOID. REMINDED THAT WE NEED TO BLADDER SCAN HER AFTER VOID.
--- NOTE | 2023-09-05 11:30 | NUR ---
PATIENT IS SLEEPING, REMINDED TO CALL US AFTER VOID FOR POST VOID RESIDUAL.
--- NOTE | 2023-09-05 12:00 | NUR ---
PT GOT UP TO RESTROOM FOR VOID WITH . ASSISTED BY BACK TO BED. BLADDERSCANNED FOR 1ML AND OML AFTER VOID OF 150. AND RN KYLEE INFORMED.
[2023-09-05 12:20] VITALS: BP 107/56
--- NOTE | 2023-09-05 12:25 | NUR ---
VITALS DONE. RIGHT ARM IV REMOVED, PATIENT TOLERATED FAIR, CATHETER INTACT. PENDING DISCHARGE TO HOME.
[2023-09-05] MEDS ORDERED: SENNA-S TABLET1 EACH PO (12:49)
[2023-09-05] MEDS ORDERED: KONDREMUL2.5 ML/5 M PO (12:50)
[2023-09-05] MEDS ORDERED: HALOPERIDOL0.5 MG PO (12:56)
--- NOTE | 2023-09-06 13:45 | PATH ---
[facility] [address], [place] [address] Signed SPECIMEN(S): A UTERUS, CERVIX AND FALLOPIAN TUBES SPECIMEN SOURCE: A. UTERUS, CERVIX AND FALLOPIAN TUBES CLINICAL HISTORY: Incomplete uterovaginal prolapse, GRUPO FINAL PATHOLOGIC DIAGNOSIS: Uterus with bilateral fallopian tubes, hysterectomy with bilateral salpingectomy: - Proliferative phase endometrium; no hyperplasia or neoplasia identified - Cervix with no significant pathologic changes - Bilateral fallopian tubes with no significant pathologic changes BRP MICROSCOPIC EXAMINATION: Histologic sections of all submitted blocks are examined by light microscopy. These findings, together with the gross examination, support the pathologic diagnosis. GROSS DESCRIPTION: The specimen, labeled and designated "HermanJae" and designated on the requisition "uterus, cervix, bilateral fallopian tubes," is received in formalin and consists of a uterus (46 g, 6.4 cm superior-inferior, 3.6 cm cornu to cornu, 3.3 cm anterior to posterior), attached cervix (3.5 cm in length by 3.6 cm in diameter) with pink-coronado wrinkled cervical mucosa and patent slit-shaped os (1.0 x 0.3 cm), and 2 detached and undesignated fimbriated fallopian tube segments (2.9 cm in length by 0.6 cm in diameter and 2.4 cm in length by 0.5 cm in diameter). One fallopian tube segment is arbitrarily inked blue. Both fallopian tube segments are brown-coronado and are sectioned to reveal a coronado-pink soft cut surface with pinpoint lumen. The fimbriae are entirely submitted. The uterine serosa is pink-coronado and smooth. The cervix is sectioned to reveal a pink-coronado herringbone endocervical mucosa (endocervical canal: 2.0 cm in length by 1.0 cm in diameter). Sectioning of the uterus reveals an endometrial cavity (3.5 cm superior-inferior by 1.2 cm cornu to cornu) with coronado endometrial lining that measures up to 0.2 centimeters in thickness. The myometrium (1.7 cm in PATIENT NAME: CHRISTOPHE HERMAN PATHOLOGY DATE OF : 46 REPORT #: [id number] PHYSICIAN: ALEXANDER CARBONE PCP: JENA SIMMONS REPORT IS CONFIDENTIAL AND NOT TO BE RELEASED WITHOUT AUTHORIZATION [facility] [address], [place] [address] Signed greatest thickness) is pink-coronado and trabeculated with no masses or lesions grossly identified. Skein Tier sections are submitted. Cassette Summary: (A1-A2) fallopian tubes (A3) cervix (A4) endomyometrium AC (under the direct supervision of a pathologist) The Gross Description was prepared using a voice recognition system. The report was reviewed for accuracy; however, sound-alike word errors, addition and/or deletions may occur. If there is any question about this report, please contact Client Services. ADDITIONAL NOTES: Immunohistochemical and/or in situ hybridization studies if performed in this case included appropriate positive controls that reacted as expected. This test was developed and its performance characteristics determined by [facility]. It has not been cleared or approved by the U.S. Food and Drug Administration. The FDA has determined that such clearance or approval is not necessary. This test is used for clinical purposes. It should not be regarded as investigational or for research. [facility] is certified under the Clinical Laboratory Improvement Amendments of 1988 (CLIA) as qualified to perform high complexity clinical laboratory testing. PERFORMING LABORATORY: Technical component was performed by [facility], [address] [place] [id number] (CLIA# [id number]). Professional interpretation was performed by [facility] - [facility], [address] [address] (CLIA# [id number]). Diagnostician: Freeman Palmer MD Pathologist Electronically Signed 09/06/2023 Copies: ~ PATIENT NAME: CHRISTOPHE HERMAN PATHOLOGY DATE OF : 46 REPORT #: [id number] PHYSICIAN: ALEXANDER CARBONE PCP: JENA SIMMONS REPORT IS CONFIDENTIAL AND NOT TO BE RELEASED WITHOUT AUTHORIZATION
== END 2023-09-05 13:30 | disposition home or self-care (01) | DRG 743 ==
LOC: DSVR 09-01 05:50 → MS 09-01 05:50 → DS 09-01 07:30 → EDSTATUS 09-01 07:30 → DSVR 09-01 07:30 → MS 09-01 12:16
PROVIDERS: ADMIT Obstetrics & Gynecology; ATTEND Obstetrics & Gynecology
PROC: 0ULG7ZZ Occlusion of Vagina, Via Natural or Artificial Opening (ICD-10-PCS; 2023-09-01)
PROC: 0UT90ZZ Resection of Uterus, Open Approach (ICD-10-PCS; principal; 2023-09-01 07:30)
PROC: 0UB70ZZ Excision of Bilateral Fallopian Tubes, Open Approach (ICD-10-PCS; 2023-09-01 07:30)
PROC: 0U9 Female Reproductive System, Drainage (ICD-10-PCS; 2023-09-01 07:30)
PROC: 0TJB8ZZ Inspection of Bladder, Via Natural or Artificial Opening Endoscopic (ICD-10-PCS; 2023-09-01 07:30)
DX: N81.3 Complete uterovaginal prolapse (principal); N39.3 Stress incontinence (female) (male); M85.80 Other specified disorders of bone density and structure, unspecified site; G20.A1 Parkinson's disease without dyskinesia, without mention of fluctuations; R33.9 Retention of urine, unspecified; D64.9 Anemia, unspecified; F29 Unspecified psychosis not due to a substance or known physiological condition; Z90.49 Acquired absence of other specified parts of digestive tract; Z98.890 Other specified postprocedural states
CPT/HCPCS: 00944; 36415; 51798; 80048; 85027; 88305; A9270; C1771; C2631; J0131; J0690; J1200; J1630; J1644; J1885; J2001; J2274; J2405; J2704; J3490; J7121